=== PATIENT | female | born 1945 | race Caucasian/White ===

== ENCOUNTER 2021-09-13 13:15 | Inpatient (IN) | payer MEDICARE, OTHER ==
[~2021-09-13] VITALS: Ht 172.7 cm; Wt 70.1 kg
[2021-09-13 13:30] VITALS: BP 132/58; PULSE 70; TEMP 98.5
[2021-09-13] MEDS ORDERED: ZESTRIL 20MG TA20 MG PO (13:51)
[2021-09-13] MEDS ORDERED: GLUCOPHAGE1000 MG PO (13:52)
[2021-09-13] MEDS ORDERED: SYNTHROID0.1 MG/TAB PO (13:53)
[2021-09-13] MEDS ORDERED: PROVASTATIN PO (13:55)
[2021-09-13] MEDS ORDERED: PRILOTC PO (13:56)
[2021-09-13] MEDS ORDERED: JARDIANCE10 (13:56)
[2021-09-13] MEDS ORDERED: CALCIUM 600600 MG PO (13:57)
[2021-09-13] MEDS ORDERED: ASPIRIN 81M81 MG/TA2 PO (13:57)
[2021-09-13] MEDS ORDERED: VITAMIN D31000 I1 PO (13:58)
[2021-09-13 16:35] VITALS: BP 143/57; PULSE 71; TEMP 98.4
--- NOTE | 2021-09-13 17:49 | NUR ---
Patient had an uneventful day. A&Ox4. VSS. IV CDI, fluids infusing. Patient independent in the room. Npo after midnight. Reports pain with palpatation in abdomen. No further needs expressed. Call light within reach
[2021-09-13 19:16] VITALS: BP 150/62; PULSE 70; TEMP 98.2
[2021-09-13] MEDS ORDERED: PRAVACHOL 40MG40 MG PO (19:43)
[2021-09-13] MEDS ORDERED: PRINIVIL20 MG PO (19:45)
--- NOTE | 2021-09-13 22:30 | NUR ---
ASSISTED TO BATHROOM, VOIDS AND BACK TO BED. GAIT STEADY. IVF INFUSING TO RT HAND WITHOUT REDNESS OR SWELLING. WILL BE NPO AT MIDNIGHT FOR ABSCESS DRAIN PLACMENT TOMORROW. IS ALERT AND ORIENTED X4. REPORTS LLQ PAIN ONLY WITH PALPATION. DENIES NEED FOR PAIN MEDS AT THIS TIME.
[2021-09-14] VITALS (8 sets, daily range): BP systolic 113–148; BP diastolic 41–61; PULSE 61–76; TEMP 98.2–98.9
--- NOTE | 2021-09-14 04:00 | NUR ---
PT SBA TO BATHROOM, VOIDS AND BACK TO BED. IVF CONTINUE. HAS BEEN NPO SINCE MIDNIGHT FOR DRAIN PLACEMENT PER CT.
[2021-09-14 05:55] LABS: BASO % 0.4 % (0.0-2.0); EOS # 0.1 K/mm3 (0.0-0.7); GRAN % 78.1 % (42.2-75.2); LYMPH # 0.9 K/mm3 (1.2-3.4); LYMPH % 12.2 % (20.0-51.0); MEAN CELL VOLUME 80 fl (80.0-100.0); MEAN CORPUSCULAR HGB CONC 32 g/dl (33.0-37.0); MEAN PLATELET VOLUME 11.3 fl (7.4-10.4); MONO # 0.6 K/mm3 (0.1-0.6); MONO % 7.9 % (1.7-9.3); PLATELET COUNT 254 K/mm3 (130-400); RED BLOOD COUNT 3.78 M/mm3 (4.10-5.30); REDCELL DISTRIBUTION WIDTH-CV 17.6 % (11.5-14.5)
[2021-09-14 05:58] LABS: HEMATOCRIT 30.1 % (37.0-47.0); HEMOGLOBIN 9.7 g/dl (12.5-16.0); MEAN CORPUSCULAR HEMOGLOBIN 26 pg (27-31)
[2021-09-14 06:13] LABS: CALCIUM 8.1 mg/dL (8.4-10.2); CREATININE, serum 0.57 mg/dL (0.57-1.11); POTASSIUM 3.3 mmol/L (3.5-4.5)
--- NOTE | 2021-09-14 11:50 | NUR ---
die lay out worker met with patient to complete intake and discuss discharge plan. Patient reportst that she lives at home with her Gabe ([phone]) in [place]. Patient is independent with her ADL's and watches two little boys during the vázquez. She does not utilize any DME to assist with mobility. Patient has no home oxygen needs. PCP is Dr. Elias Darden and she utilizes [facility] for prescriptions. Patient reports that she does have a [employer] estbalished listing her Gabe and her sister Demi as her agents. Patient is planning on returning home once medically ready. Discharge plan:Home
--- NOTE | 2021-09-14 13:07 | NUR ---
PATIENT ALERT AND ORIENTED X4. VSS. PATIENT HERE FOR DRAIN PLACEMENT FOR ABSCESS. PATIENT REQUESTS PAIN MEDICATION. PATIENT REPORTS PAIN /. PATIENT DENIES N/V/D. ASSESSMENT PERFORMED. AM MEDS ADMINISTERED. PATIENT RESTING IN CHAIR WITH CALL LIGHT NEAR.
--- NOTE | 2021-09-14 13:24 | NUR ---
Initial visit; Patient thanked Elevator Mechanic for looking in on her, visiting and offering prayer for both her and her who is also experiencing serious illness. Elevator Mechanic will follow up while Nakia is hospitalized.
--- NOTE | 2021-09-14 18:11 | NUR ---
PATIENT REPORTS PAIN SHOOTING ACROSS ABDOMEN RANGING FROM 4-8/10. PATIENT REQUESTS PAIN MEDICATION. MINIMAL DRAINAGE FROM ACCORDIAN DRAIN. PATIENT ORDERED DINNER AND RESTING IN BED, CALL LIGHT NEAR.
--- NOTE | 2021-09-14 20:10 | NUR ---
Pt. laying in bed. Pt. is A&OX3, assessment complete. IV to rt. hand patent. Abscess drain noted to rt. abd. Brown drainage noted. Pt. denies pain or other needs at this time.
[2021-09-15 04:21] VITALS: BP 115/46; PULSE 65; TEMP 97.7
[2021-09-15 07:28] VITALS: BP 128/57; PULSE 69; TEMP 98.6
--- NOTE | 2021-09-15 08:39 | NUR ---
PATIENT ALERT AND ORIENTED X4. VSS. PATIENT DENIES PAIN. ACCORDIAN DRAIN TO LEFT ABDOMEN TO CLOSED GRAVITY DRAINAGE WITH MINIMAL OUTPUT THIS MORNING. ASSESSMENT PERFORMED. AM MEDS ADMINISTERED. IV TO RIGHT HAND WITH NS RUNNING AT 75/HOUR. PATIENT IS TOLERATING FOOD, COMPLAINS OF NO PAIN, NAUSEA, OR PASSING OF GAS. PATIENT RESTING IN BED WITH CALL LIGHT NEAR.
--- NOTE | 2021-09-15 10:16 | NUR ---
Follow-up visit; When Diesel Scoop Operator saw Nakia she commented on how rested she looked. Nakia said she was rested and enjoyed her breakfast. She is just waiting to speak with her Physician and see what comes next. Diesel Scoop Operator wished her well and offered God's blessings. Diesel Scoop Operator will follow up.
--- NOTE | 2021-09-15 10:28 | NUR ---
PATIENT REPORTS SMALL BOWEL MOVEMENT. [id number]. PATIENT DENIES PAIN OR NAUSEA.
[2021-09-15 12:06] VITALS: BP 125/45; PULSE 67; TEMP 98.5
[2021-09-15 16:10] VITALS: BP 132/49; PULSE 65; TEMP 98.3
[2021-09-15 19:15] VITALS: BP 133/50; PULSE 67; TEMP 99.5
--- NOTE | 2021-09-15 20:10 | NUR ---
Pt. sitting up in chair. Pt. is A&OX3, assessment complete. Abd. abscess drain noted with minimal drainage. Pt. denies pain or other needs, call light within reach.
[2021-09-15 23:30] VITALS: BP 148/57; PULSE 65; TEMP 97.8
[2021-09-16 03:53] VITALS: BP 135/49; PULSE 68; TEMP 98.3
[2021-09-16 08:00] VITALS: BP 135/48; PULSE 68; TEMP 98.2
--- NOTE | 2021-09-16 08:15 | NUR ---
up in chair waiting for breakfst, full assessment completed, see interventions for further info, DR Coles' was in earlier to see patient, denies needs at this time
--- NOTE | 2021-09-16 10:15 | NUR ---
remains up in chair and denies needs
[2021-09-16 12:01] VITALS: BP 122/40; PULSE 68; TEMP 98.2
--- NOTE | 2021-09-16 12:30 | NUR ---
remains up in chair, had lunch and tolerated well, awaiting scan
--- NOTE | 2021-09-16 13:06 | NUR ---
Follow-up visit; Patient says she is doing better and hoped to be discharged home today. Pick Remover said a Blessings and wished Nakia well.
--- NOTE | 2021-09-16 15:14 | NUR ---
to radiology per WC for CT scan
--- NOTE | 2021-09-16 15:39 | NUR ---
returned from radiology and sitting on bench seat by window
[2021-09-16 15:53] VITALS: BP 139/50; PULSE 68; TEMP 98.7
[2021-09-16] MEDS ORDERED: FLAGYL500 MG PO (15:56)
[2021-09-16] MEDS ORDERED: CIPRO 500MG TA500 MG PO (15:56)
--- NOTE | 2021-09-16 16:15 | NUR ---
Dr Coles was in to see patient, discharge instructions given to patient, verbalizes understanding, she is dressed and waiting for her ride
--- NOTE | 2021-09-16 17:20 | NUR ---
discharged per WC
== END 2021-09-16 17:20 | disposition home or self-care (01) | DRG 391 ==
LOC: SURG 13:15
PROVIDERS: ADMIT Surgery
PROC: 0W9G30Z Drainage of Peritoneal Cavity with Drainage Device, Percutaneous Approach (ICD-10-PCS; principal; 2021-09-14)
DX: K57.20 Diverticulitis of large intestine with perforation and abscess without bleeding (principal); K65.1 Peritoneal abscess; E11.9 Type 2 diabetes mellitus without complications; Z23 Encounter for immunization
CPT/HCPCS: A9270; C1729; C1769; J0744; J2250; J3010; J7030